=== PATIENT | male | born 1945 | race Caucasian/White ===

== ENCOUNTER → 2016-06-27 | Outpatient (CLI) | payer OTHER ==
[~2016-06-27] MED LIST: ASCO500T3 PO; COD1OIL4 PO; LUTE15CA PO; MISCTAB26 PO; MULT-506 PO; SELE1TAB5 PO; [UNRECOGNIZED DRUG - CODE] PO
--- NOTE | 2016-06-27 10:11 | DIAGNOSTIC IMAGING REPORT ---
TESTICULAR ULTRASOUND CLINICAL HISTORY: N50.9 Testicular [id number] COMPARISON STUDY: 01/20/2009 FINDINGS: The right testis measures 40 x 27 x 27 mm. The left testis measures 45 x 23 x 23 mm. No intratesticular masses are visualized. There is no evidence of testicular torsion. There is a 7 mm cyst, arising from either the epididymal tail or tunica. There is also a nonspecific 7 mm echogenic focus within the left epididymal tail. There is a left-sided varicocele. There is a small reducible fat-containing right inguinal hernia. IMPRESSION: 1. No evidence of testicular torsion 2. No evidence of intratesticular mass 3. 7 mm left-sided cyst arising from either the epididymal tail or tunica 4. Left-sided varicocele 5. Small reducible fat-containing right inguinal hernia Electronically signed by: Elder Longoria M.D. 06/27/2016 10:10 AM Dictated Date/Time: 06/27/2016 10:05 AM
== END | disposition home or self-care (01) ==
LOC: C.ULTR 09:09
PROVIDERS: ATTEND Urology
DX: N50.9 Disorder of male genital organs, unspecified (principal); I86.1 Scrotal varices; K40.90 Unilateral inguinal hernia, without obstruction or gangrene, not specified as recurrent